=== PATIENT | male | born 1990 | race African-American/Black ===

== ENCOUNTER 2019-07-29 23:39 | Emergency (ER) | payer MEDICAID ==
[~2019-07-29] VITALS: Ht 190.5 cm; Wt 81.8 kg
[2019-07-30 00:36] VITALS: BP 147/106
[2019-07-30] MEDS ORDERED: DOXYCYCLINE HYCLATE 100 MG CAPSULE PO ONE (00:45)
[2019-07-30] MEDS ORDERED: BACITRACIN 0.9 GM PACKET OINTMENT TP ONE (00:45)
== END 2019-07-30 01:37 | disposition home or self-care (01) ==
LOC: EMS 23:41
DX: T24.201A Burn of second degree of unspecified site of right lower limb, except ankle and foot, initial encounter (principal); T31.0 Burns involving less than 10% of body surface; F17.210 Nicotine dependence, cigarettes, uncomplicated; F12.90 Cannabis use, unspecified, uncomplicated; X08.8XXA Exposure to other specified smoke, fire and flames, initial encounter; Y93.89 Activity, other specified; Y92.89 Other specified places as the place of occurrence of the external cause; Y99.8 Other external cause status
CPT/HCPCS: 16000; 99406

== ENCOUNTER 2019-08-06 20:23 | Emergency (ER) | payer MEDICAID ==
[~2019-08-06] VITALS: Ht 190.5 cm; Wt 81.8 kg
[2019-08-06 20:31] VITALS: BP 135/82
[2019-08-06] MEDS ORDERED: SULFAMETHOX/TRIMETH DS 800-160 MG/TABLET PO ONE (21:30)
[2019-08-06] MEDS ORDERED: TraMADol HCL 50 MG TABLET PO ONE (21:30)
== END 2019-08-06 21:59 | disposition home or self-care (01) ==
LOC: EMS 20:26
DX: L08.9 Local infection of the skin and subcutaneous tissue, unspecified (principal); F17.210 Nicotine dependence, cigarettes, uncomplicated; F12.90 Cannabis use, unspecified, uncomplicated

== ENCOUNTER 2019-08-11 17:11 | Emergency (ER) | payer MEDICAID | END 2019-08-11 17:20 | disposition left against medical advice (07) | LOC: EMS 17:12 | DX: Z53.21 Procedure and treatment not carried out due to patient leaving prior to being seen by health care provider (principal) ==

== ENCOUNTER 2019-09-09 20:45 | Emergency (ER) | payer MEDICAID ==
[~2019-09-09] VITALS: Ht 190.5 cm; Wt 88.2 kg
[2019-09-09 22:47] VITALS: BP 126/79
== END 2019-09-09 23:03 | disposition home or self-care (01) ==
LOC: EMS 20:50
DX: S60.222A Contusion of left hand, initial encounter (principal); S50.12XA Contusion of left forearm, initial encounter; F17.210 Nicotine dependence, cigarettes, uncomplicated; F12.90 Cannabis use, unspecified, uncomplicated; W50.0XXA Accidental hit or strike by another person, initial encounter; Y93.89 Activity, other specified; Y92.89 Other specified places as the place of occurrence of the external cause; Y99.8 Other external cause status

== ENCOUNTER 2021-06-26 22:42 | Emergency (ER) | payer MEDICAID, OTHER ==
[~2021-06-26] VITALS: Ht 190.5 cm; Wt 86.4 kg
[2021-06-26 23:28] VITALS: BP 121/75
[2021-06-26] MEDS ORDERED: CefTRIAXone SODIUM 1 GM/VIAL IM ONE (23:30)
[2021-06-26] MEDS ORDERED: DOXYCYCLINE HYCLATE 100 MG TABLET PO ONE (23:30)
[2021-06-26] MEDS ORDERED: LIDOCAINE/PF 1% 2 ML VIAL IM ONE (23:30)
[2021-06-26] MEDS ORDERED: IBUPROFEN 800 MG TABLET PO ONE (23:45)
[2021-06-27 00:14] LABS: APPEARANCE,URINE CLOUDY (CLEAR); BILIRUBIN,URINE NEGATIVE (NEGATIVE); GLUCOSE, URINE (UA) NEGATIVE (NEGATIVE); KETONES,URINE TRACE mg/dL (NEGATIVE); LEUKOCYTE ESTERASE ,URINE NEGATIVE (NEGATIVE); NITRATE,URINE NEGATIVE (NEGATIVE); OCCULT BLOOD,URINE NEGATIVE (NEGATIVE); PROTEIN,URINE NEGATIVE (NEGATIVE); UROBILINOGEN,URINE 0.2 mg/dL (<=1.0)
[2021-06-27 00:17] LABS: BACTERIA,URINE Rare /HPF (None Seen); RBC,URINE None Seen /HPF (0-2); WBC,URINE 0-2 /HPF (0-5)
== END 2021-06-27 00:18 | disposition home or self-care (01) ==
LOC: EMS 22:44
DX: N48.89 Other specified disorders of penis (principal); F17.210 Nicotine dependence, cigarettes, uncomplicated; F12.90 Cannabis use, unspecified, uncomplicated
CPT/HCPCS: 81001; 87491; 87591; 96372; 99283; J0696; J3490